=== PATIENT | male | born 1960 | race Caucasian/White ===

== ENCOUNTER → 2019-09-05 | Outpatient (CLI) | payer BC ==
[~2019-09-05] MED LIST: ASPIRIN81 MG PO; CLOPIDOGREL75 MG PO; ISOSORBIDE MONO30 MG PO; LISINOPRIL-HCT1 EAC1 PO; LISINOPRIL20 MG PO; METOPROLOL SUCC25 MG PO; METOPROLOL TART50 MG PO; NITROSTAT0.4 MG PO; PRAVASTATIN SOD20 MG PO
== END ==
LOC: RAD 12:27
PROVIDERS: ATTEND Family Medicine
DX: R60.0 Localized edema (principal)
CPT/HCPCS: 93971